=== PATIENT | female | born 1935 | race Caucasian/White ===

== ENCOUNTER 2017-05-28 12:45 | Day surgery (SDC) | payer MEDICARE, OTHER ==
[~2017-05-28 12:45] MED LIST: ASPI81TA82 PO; COUM2.5T PO; ESTR0.5T9 PO; IMDU30TA PO; LISI-366 PO; METO25CR PO; POTA-243 PO; VYTO10TA35 PO; ZOLO20CO PO
[2017-05-28 13:21] VITALS: BP 141/77; PULSE 68; RESP 16; TEMP 98; O2SAT 100
[2017-05-28 14:00] VITALS: BP 116/75; PULSE 68; RESP 16; TEMP 98.1; O2SAT 93
[2017-05-28] MEDS ORDERED: LIDOCAINE HCL 1% 20 ML VIAL ONE (14:03)
[2017-05-28 14:15] VITALS: BP 98/53; PULSE 65; RESP 16; O2SAT 93
[2017-05-28 14:30] VITALS: BP 114/63; PULSE 66; RESP 16; O2SAT 98
--- NOTE | 2017-05-28 14:45 | RADRPT ---
EXAM DATE/TIME: 05/28/2017 13:17 [place] COMPARISON: No previous studies available for comparison. INDICATIONS : Enlarged right thyroid nodule. MEDICAL HISTORY : Hypercholesterolemia. Hypertension. A.FIB. IBS.Colitits. SURGICAL HISTORY : Left foot surgery, ENCOUNTER: Initial ACUITY: 1 day PAIN SCORE: 0/10 LOCATION: Right neck ORGAN: Right thyroid lobe SPECIMENS: Three fine needle aspirate(s) submitted for pathologic evaluation. DEVICE: 22 gauge needle Post procedure scanning reveals no hematoma or other complication. The possibility does exist that the tissue obtained will be non-diagnostic. If the sample is non-zen gnostic a repeat biopsy or surgical biopsy may need to be performed. TECHNIQUE: 1. Ultrasound guidance for needle biopsy. 2. Needle biopsy. The outpatient ultrasound of the thyroid was reviewed prior to the biopsy. The 3.5 cm isoechoic nodul e within the right mid and lower pole was targeted during the biopsy. The risks, benefits and alterna tives to the procedure were explained and verbal and written consent was obtained. The site was prep ped in sterile fashion. Full sterile technique was used, including cap, mask, sterile gloves and arnoldo n and a large sterile sheet. Hand hygiene and 2% chlorhexidine and/or betadine/alcohol prep was util ized per protocol for cutaneous antisepsis. The skin and subcutaneous tissues were infiltrated with local anesthetic solution. Sterile gel and sterile probe cover were utilized for ultrasound guidance . With the patient on the ultrasound table, images were obtained. A needle was advanced into the identified target and the number of specimens as above obtained and silva bmitted for pathologic evaluation. The patient tolerated the procedure well and left the ultrasound suite in stable condition. CONCLUSION: Uncomplicated ultrasound guided needle biopsy of an approximate 3.5 cm right thyroid nodule. Bro Nraanjo Jr., MD on May 28, 2017 at 14:41 Board Certified Radiologist. This report was verified electronically.
== END 2017-05-28 14:30 | disposition home or self-care (01) ==
LOC: HRAD 12:45 → HRIP 12:46 → HRAD 14:30
PROVIDERS: ATTEND General Practice
DX: E04.1 Nontoxic single thyroid nodule (principal); I10 Essential (primary) hypertension; I48.91 Unspecified atrial fibrillation
CPT/HCPCS: 10022; 76942; 88172; 88173